=== PATIENT | male | born 1955 | race Two or more races ===

== ENCOUNTER 2018-07-31 08:20 | Day surgery (SDC) | payer BC ==
[2018-07-31] MEDS ORDERED: MIDAZOLAM 1 MG/ML 2 ML INJ (09:59)
[2018-07-31] MEDS ORDERED: FENTAnyl 50 MCG/ML VIAL (09:59)
== END 2018-07-31 11:32 | disposition home or self-care (01) ==
LOC: GIL 08:20
DX: Z12.11 Encounter for screening for malignant neoplasm of colon (principal); K57.30 Diverticulosis of large intestine without perforation or abscess without bleeding; K64.8 Other hemorrhoids
CPT/HCPCS: 45378